=== PATIENT | male | born 1990 | race Caucasian/White ===

== ENCOUNTER 2022-03-09 11:18 | Emergency (ER) | payer OTHER ==
[~2022-03-09] VITALS: Ht 188 cm; Wt 95.3 kg
[2022-03-09] MEDS ORDERED: ONDANSETRON 4MG ORAL DISINTEGRATING TAB PO ONE (14:35)
[2022-03-09] MEDS ORDERED: LIDOCAINE 1% MDV 20ML VIAL SC ONE (14:40)
[2022-03-09] MEDS ORDERED: AUGMENTIN 875 MG TAB PO ONE (15:30)
[2022-03-09] MEDS ORDERED: NEOSPORIN OINT 0.9 GM PKT TOP ONE (15:35)
[2022-03-09] MEDS ORDERED: AMOX875T PO (15:36)
[2022-03-09] MEDS ORDERED: NEOM28.3 TP (15:45)
[2022-03-09] MEDS ORDERED: AMOX875T2 PO (15:53)
[2022-03-09 16:00] VITALS: BP 138/65
== END 2022-03-09 16:02 | disposition home or self-care (01) ==
LOC: M ED 14:28
DX: S61.431A Puncture wound without foreign body of right hand, initial encounter (principal); W54.0XXA Bitten by dog, initial encounter; F10.10 Alcohol abuse, uncomplicated; Z79.899 Other long term (current) drug therapy